=== PATIENT | female | born 1970 | race Caucasian/White ===

== ENCOUNTER 2017-01-04 20:34 | Emergency (ER) | payer OTHER ==
[2017-01-04] MEDS ORDERED: SODIUM CHLORIDE 0.9% 1,000 ML IV STA (21:53)
[2017-01-04 22:31] LABS: Basophils # (A) 0.1 k/uL (0-0.2); Basophils % (A) 1 %; CHCM 36.9; Eosinophils # (A) 0.3 k/uL (0-0.7); Eosinophils % (A) 3 %; HDW 3.25; HGB 14.7 gm/dL (11.4-16.0); Hyperchromasia Slight; Luc # (Auto) 0.29; Luc % (Auto) 3; Lymphocytes # (A) 2.8 k/uL (1.0-4.8); Lymphocytes % (A) 30 %; MCH 31.2 pg (25.0-35.0); MCHC 35.8 g/dL (31.0-37.0); MCV 87.3 fL (80.0-100.0); Mean Platelet Volume 7.5; Monocytes # (A) 0.5 k/uL (0-1.0); Monocytes % (A) 6 %; Neutrophils # (A) 5.4 k/uL (1.3-7.7); Neutrophils % (A) 58 %; RBC 4.69 m/uL (3.80-5.40); RDW 13.1 % (11.5-15.5); WBC 9.3 k/uL (3.8-10.6)
[2017-01-04 22:41] LABS: ALT 50 U/L (9-52); AST 31 U/L (14-36); Alkaline Phosphatase 72 U/L (38-126); Amylase 47 U/L (30-110); Anion Gap 13 mmol/L; Blood Urea Nitrogen 14 mg/dL (7-17); Calcium 9.6 mg/dL (8.4-10.2); Carbon Dioxide 25 mmol/L (22-30); Chloride 102 mmol/L (98-107); Glucose 182 mg/dL (74-99); Non-African American GFR(MDRD) >60 (>60 ml/min/1.73 sqM); Potassium 4.4 mmol/L (3.5-5.1); Sodium 140 mmol/L (137-145); Total Bilirubin 0.6 mg/dL (0.2-1.3); Total Protein 7.3 g/dL (6.3-8.2)
[2017-01-04 22:45] LABS: Appearance,Urine Clear (Clear); Bacteria,Urine Rare /hpf; Bilirubin,Urine Negative (Negative); Glucose,Urine (UA) Negative (Negative); Ketones,Urine Trace (Negative); Leukocyte Esterase,Urine Trace (Negative); Mucus,Urine Rare /hpf; Nitrite,Urine Negative (Negative); PH, Urine 5.5 (5.0-8.0); Particle Count 1643; Protein,Urine Negative (Negative); RBC,Urine <1 /hpf (0-5); Specific Gravity,Urine 1.018 (1.001-1.035); Squamous Epithelial Cell,Urine <1 /hpf (0-4); UA Billing (MACRO vs. MICRO) MICRO; Urobilinogen,Urine <2.0 mg/dL (<2.0); WBC,Urine 2 /hpf (0-5)
--- NOTE | 2017-01-04 22:53 | ED ---
Abdominal Pain HPI - General Chief Complaint: Abdominal Pain Stated Complaint: Back Pain Time Seen by Provider: 01/04/17 21:52 Source: patient, RN notes reviewed Mode of arrival: ambulatory Limitations: no limitations - History of Present Illness Initial Comments: Patient is a 46-year-old female with chief complaint of a lower deep back pain for the past few days. She also reports that she has had a history of dysuria for the past 3 days as well. She did call her primary care provider and was started on Bactrim. She states that she's at the antibiotic for 4 days and senna relief of her symptoms. She states that a few weeks ago she did have unprotected sex with a new partner. Patient states that she may have a sexual transmitted infection. She denies any vaginal discharge. She states that she feels a deep aching pain in her lower back and pelvis. She states that she's had normal bowel movements but feels a fullness that she is constipated. She denies any history of kidney stones. She states the pain is currently 3 out of 10. She states that shows a has a history of borderline diabetes, high blood pressure, neuropathy. She states that she feels very anxious about this. - Related Data Home Medications Medication Instructions Recorded Confirmed ALPRAZolam [Xanax] 0.25 - 0.5 mg PO DAILY PRN 07/09/16 07/09/16 Escitalopram [Lexapro] 10 mg PO DAILY 07/09/16 07/09/16 Metoprolol Tartrate [Lopressor] 50 mg PO BID 07/09/16 07/09/16 Thyroid,Pork [[place] Thyroid] 180 mg PO DAILY 07/09/16 07/09/16 Previous Rx's Medication Instructions Recorded Phenazopyridine [Pyridium] 100 mg PO TID #9 tablet 01/04/17 Allergies Allergy/AdvReac Type Severity Reaction Status Date / Time morphine AdvReac Nausea & Verified 01/04/17 20:47 Vomiting Review of Systems ROS Statement: Those systems with pertinent positive or pertinent negative responses have been documented in the HPI. ROS Other: All systems not noted in ROS Statement are negative. Past Medical History Past Medical History: Hypertension, Thyroid Disorder Additional Past Medical History / Comment(s): High liver enzymes; Ruptured achilles tendon right. has not been dx with DM although pt is concerned she may have this History of Any Multi-Drug Resistant Organisms: MRSA Date of last positivie culture/infection: 1996 MDRO Source:: Right ankle Past Surgical History: Orthopedic Surgery, Tonsillectomy Additional Past Surgical History / Comment(s): Thyroidectomy; right knee surgery Past Psychological History: No Psychological Hx Reported Smoking Status: Never smoker Past Alcohol Use History: Occasional Past Drug Use History: None Reported General Exam - General Exam Comments Initial Comments: Well-appearing 46-year-old female. No acute distress. Limitations: no limitations General appearance: alert, in no apparent distress Head exam: Present: atraumatic, normocephalic, normal inspection Eye exam: Present: normal appearance, PERRL, EOMI. Absent: scleral icterus, conjunctival injection, periorbital swelling ENT exam: Present: normal exam Neck exam: Present: normal inspection. Absent: tenderness, meningismus, lymphadenopathy Respiratory exam: Present: normal lung sounds bilaterally. Absent: respiratory distress, wheezes, rales, rhonchi, stridor Cardiovascular Exam: Present: regular rate, normal rhythm, normal heart sounds. Absent: systolic murmur, diastolic murmur, rubs, gallop, clicks GI/Abdominal exam: Present: soft, normal bowel sounds. Absent: distended, tenderness, guarding, rebound, rigid Extremities exam: Present: normal inspection, full ROM, normal capillary refill. Absent: tenderness, pedal edema, joint swelling, calf tenderness Back exam: Present: normal inspection Neurological exam: Present: alert, oriented X3, CN II-XII intact Psychiatric exam: Present: normal affect, normal mood Skin exam: Present: warm, dry, intact, normal color. Absent: rash Course Vital Signs 01/04/17 01/04/17 01/05/17 20:38 23:08 00:03 Temperature 99.6 F 98.3 F 100.2 F H Pulse Rate 90 87 92 Respiratory 16 20 18 Rate Blood Pressure 161/75 128/61 155/85 O2 Sat by Pulse 99 97 98 Oximetry Medical Decision Making - Medical Decision Making Patient is a 46-year-old female with chief complaint of a lower deep back pain for the past few days. She also reports that she has had a history of dysuria for the past 3 days as well. She did call her primary care provider and was started on Bactrim. She states that she's at the antibiotic for 4 days and senna relief of her symptoms. She states that a few weeks ago she did have unprotected sex with a new partner. Patient states that she may have a sexual transmitted infection. She denies any vaginal discharge. She states that she feels a deep aching pain in her lower back and pelvis. Lab work obtained and is normal. urinalysis is clear of infection, culture will be obtained. Patient states that she has 2 days of antibiotics left. No vaginal discharge or abnormalities on physical exam. Patient will be discharged at this time. Patient understands treatment plan and will comply. Return parameters discussed. Patient will be given Rx of pyridium for dysuria. Patient plans to follow up with PCP on Thursday. - Lab Data Result diagrams: 01/04/17 22:00 01/04/17 22:00 Lab Results 01/04/17 01/04/17 01/04/17 Range/Units 20:44 22:00 22:00 WBC 9.3 (3.8-10.6) k/uL RBC 4.69 (3.80-5.40) m/uL Hgb 14.7 (11.4-16.0) gm/dL Hct 41.0 (34.0-46.0) % MCV 87.3 (80.0-100.0) fL MCH 31.2 (25.0-35.0) pg MCHC 35.8 (31.0-37.0) g/dL RDW 13.1 (11.5-15.5) % Plt Count 254 (150-450) k/uL Neutrophils % 58 % Lymphocytes % 30 % Monocytes % 6 % Eosinophils % 3 % Basophils % 1 % Neutrophils # 5.4 (1.3-7.7) k/uL Lymphocytes # 2.8 (1.0-4.8) k/uL Monocytes # 0.5 (0-1.0) k/uL Eosinophils # 0.3 (0-0.7) k/uL Basophils # 0.1 (0-0.2) k/uL Hyperchromasia Slight Sodium 140 (137-145) mmol/L Potassium 4.4 (3.5-5.1) mmol/L Chloride 102 (98-107) mmol/L Carbon Dioxide 25 (22-30) mmol/L Anion Gap 13 mmol/L BUN 14 (7-17) mg/dL Creatinine 0.70 (0.52-1.04) mg/dL Est GFR (MDRD) Af Amer >60 (>60 ml/min/1.73 sqM) Est GFR (MDRD) Non-Af >60 (>60 ml/min/1.73 sqM) Glucose 182 H (74-99) mg/dL POC Glucose (mg/dL) 241 H (75-99) mg/dL POC Glu Plumber Apprentice ID Oziel Spencer Calcium 9.6 (8.4-10.2) mg/dL Total Bilirubin 0.6 (0.2-1.3) mg/dL AST 31 (14-36) U/L ALT 50 (9-52) U/L Alkaline Phosphatase 72 (38-126) U/L Total Protein 7.3 (6.3-8.2) g/dL Albumin 4.5 (3.5-5.0) g/dL Amylase 47 (30-110) U/L Lipase 98 (23-300) U/L Urine Color Urine Appearance (Clear) Urine pH (5.0-8.0) Ur Specific [place] (1.001-1.035) Urine Protein (Negative) Urine Glucose (UA) (Negative) Urine Ketones (Negative) Urine Blood (Negative) Urine Nitrite (Negative) Urine Bilirubin (Negative) Urine Urobilinogen (<2.0) mg/dL Ur Leukocyte Esterase (Negative) Urine RBC (0-5) /hpf Urine WBC (0-5) /hpf Ur Squamous Epith Cells (0-4) /hpf Urine Bacteria (None) /hpf Urine Mucus (None) /hpf Urine HCG, Qual (Not Detectd) Trichomonas Ag (Rapid) (Negative) 01/04/17 01/04/17 01/04/17 Range/Units 22:00 22:00 23:42 WBC (3.8-10.6) k/uL RBC (3.80-5.40) m/uL Hgb (11.4-16.0) gm/dL Hct (34.0-46.0) % MCV (80.0-100.0) fL MCH (25.0-35.0) pg MCHC (31.0-37.0) g/dL RDW (11.5-15.5) % Plt Count (150-450) k/uL Neutrophils % % Lymphocytes % % Monocytes % % Eosinophils % % Basophils % % Neutrophils # (1.3-7.7) k/uL Lymphocytes # (1.0-4.8) k/uL Monocytes # (0-1.0) k/uL Eosinophils # (0-0.7) k/uL Basophils # (0-0.2) k/uL Hyperchromasia Sodium (137-145) mmol/L Potassium (3.5-5.1) mmol/L Chloride (98-107) mmol/L Carbon Dioxide (22-30) mmol/L Anion Gap mmol/L BUN (7-17) mg/dL Creatinine (0.52-1.04) mg/dL Est GFR (MDRD) Af Amer (>60 ml/min/1.73 sqM) Est GFR (MDRD) Non-Af (>60 ml/min/1.73 sqM) Glucose (74-99) mg/dL POC Glucose (mg/dL) (75-99) mg/dL POC Glu Plumber Apprentice ID Calcium (8.4-10.2) mg/dL Total Bilirubin (0.2-1.3) mg/dL AST (14-36) U/L ALT (9-52) U/L Alkaline Phosphatase (38-126) U/L Total Protein (6.3-8.2) g/dL Albumin (3.5-5.0) g/dL Amylase (30-110) U/L Lipase (23-300) U/L Urine Color Yellow Urine Appearance Clear (Clear) Urine pH 5.5 (5.0-8.0) Ur Specific [place] 1.018 (1.001-1.035) Urine Protein Negative (Negative) Urine Glucose (UA) Negative (Negative) Urine Ketones Trace H (Negative) Urine Blood Negative (Negative) Urine Nitrite Negative (Negative) Urine Bilirubin Negative (Negative) Urine Urobilinogen <2.0 (<2.0) mg/dL Ur Leukocyte Esterase Trace H (Negative) Urine RBC <1 (0-5) /hpf Urine WBC 2 (0-5) /hpf Ur Squamous Epith Cells <1 (0-4) /hpf Urine Bacteria Rare H (None) /hpf Urine Mucus Rare H (None) /hpf Urine HCG, Qual Not Detected (Not Detectd) Trichomonas Ag (Rapid) Negative (Negative) Disposition Clinical Impression: History of urinary tract infection, Dysuria Disposition: HOME SELF-CARE Condition: Good Instructions: Dysuria (ED) Additional Instructions: Patient resting Motrin Tylenol for pain. Follow-up with primary care provider if symptoms persist. Take previous a prescribed antibiotic and fluconazole. Prescriptions: Phenazopyridine [Pyridium] 100 mg PO TID #9 tablet Referrals: Willi Cruz DO [Primary Care Provider] - 1-2 days Time of Disposition: 23:53
--- NOTE | 2017-01-04 23:37 | XR ---
EXAM: XR Abdomen, 1 View. CLINICAL HISTORY: Reason: abdominal pain TECHNIQUE: Frontal view of the abdomen. COMPARISON: No relevant prior studies available. FINDINGS: Limitations: Limited study, with a single image centered on the abdomen and excluding the mid to lower pelvis as well as right and left lateral aspects of the abdomen, was provided. It is not certain whether the image was obtained upright or supine. Gastrointestinal tract: There is a mild to moderate amount of colonic stool, where visualized within the colon. Small amount of air is seen within the gastric fundus. No markedly dilated loops are seen on this very limited exam. Bones/joints: Multilevel degenerative changes. IMPRESSION: Limited exam with single image provided, showing mild to moderate amount of colonic stool, as above. The findings could be correlated and followed clinically to guide further follow-up as clinically indicated.
[2017-01-04] MEDS ORDERED: PHENAZOPYRIDINE 100 MG TAB PO STA (23:50)
[2017-01-05 00:06] VITALS: BP 155/85; PULSE 92; RESP 18; TEMP 100.2
[2017-01-05 07:11] LABS: Glucose,Whole Blood 241 mg/dL (75-99)
[2017-01-06 12:33] LABS: Chlamydia/GC Source Vaginal
== END 2017-01-05 00:12 | disposition home or self-care (01) ==
LOC: EC 20:34
DX: R30.0 Dysuria (principal); M54.5 Low back pain; R10.9 Unspecified abdominal pain; K59.00 Constipation, unspecified; I10 Essential (primary) hypertension; E07.9 Disorder of thyroid, unspecified; Z79.899 Other long term (current) drug therapy; Z88.5 Allergy status to narcotic agent; Z87.440 Personal history of urinary (tract) infections
CPT/HCPCS: 36415; 74000; 80053; 81001; 81025; 82150; 83690; 85025; 87070; 87086; 87205; 87491; 87591; 87808; 99284

== ENCOUNTER → 2019-09-14 | Outpatient (CLI) | payer OTHER ==
[2019-09-14 15:35] LABS: Basophils % (A) 0 %; Eosinophils # (A) 0.2 k/uL (0-0.7); Eosinophils % (A) 2 %; HCT 40.4 % (34.0-46.0); Lymphocytes % (A) 24 %; MCH 31.3 pg (25.0-35.0); MCHC 34.8 g/dL (31.0-37.0); Mean Platelet Volume 5.8; Monocytes # (A) 0.4 k/uL (0-1.0); Monocytes % (A) 5 %; Neutrophils # (A) 5.6 k/uL (1.3-7.7); Neutrophils % (A) 67 %; Platelet Count 312 k/uL (150-450); RBC 4.49 m/uL (3.80-5.40); WBC 8.3 k/uL (3.8-10.6)
[2019-09-14 23:42] LABS: Hemoglobin A1C 5.8 % (4.0-6.0)
[2019-09-15 01:09] LABS: African American GFR (CKD) 99.6 (60.0-200.0); Albumin 4.4 g/dL (3.80-4.90); Albumin/Globulin Ratio 2.59 (1.60-3.17); Anion Gap 9.8 mmol/L (4.00-12.00); BUN/Creat Ratio 16.25 Ratio (12.00-20.00); Calcium 9.1 mg/dL (8.7-10.3); Carbon Dioxide 23.2 mmol/L (21.6-31.8); Chol/HDL Ratio 4.55; Globulin 1.7 g/dL (1.6-3.3); LDL Cholesterol,Calculated 103.2 mg/dL (0.0-131.0); Total Bilirubin 0.7 mg/dL (0.3-1.2); Total Protein 6.1 g/dL (6.2-8.2); VLDL Calculation 31.8 mg/dL (5.00-40.00)
== END | disposition home or self-care (01) ==
LOC: LABWHC1 14:30
PROVIDERS: ATTEND Family Medicine
DX: E11.37X1 Type 2 diabetes mellitus with diabetic macular edema, resolved following treatment, right eye (principal); Z85.850 Personal history of malignant neoplasm of thyroid
CPT/HCPCS: 36415; 80053; 80061; 82043; 82570; 83036; 84439; 84443; 85025; 86800

== ENCOUNTER → 2019-09-20 | Outpatient (CLI) | payer OTHER ==
--- NOTE | 2019-09-20 08:45 | US ---
EXAMINATION TYPE: US thyroid st tissue head/neck DATE OF EXAM: 09/20/2019 COMPARISON: NONE CLINICAL HISTORY: C73 MAL.NEOPLASM OF THYROID. Thyroidectomy 2004, history of papillary thyroid carci noma GLAND SIZE: Right Lobe: Surgically absent Left Lobe: Surgically absent NODULES RIGHT: # of nodules measured on right: 0 LEFT: # of nodules measured on left: 0 ISTHMUS: # of nodules measured in the isthmus: 0 Bilateral neck scanned, no evidence of lymphadenopathy. IMPRESSION: Post thyroidectomy with no sizable mass or evidence of lymphadenopathy.
--- NOTE | 2019-09-20 08:47 | US ---
EXAMINATION TYPE: US abdomen complete DATE OF EXAM: 09/20/2019 COMPARISON: NONE CLINICAL HISTORY: R10.9 Abd pain. abdominal pain EXAM MEASUREMENTS: Liver Length: 20.6 cm Gallbladder Wall: 0.3 cm CBD: 0.2 cm Spleen: 11.7 cm Right Kidney: 12.4 x 4.3 x 4.1 cm Left Kidney: 11.1 x 4.9 x 5.3 cm Pancreas: slightly heterogeneous Limited by bowel gas. Liver: enlarged, attenuating Gallbladder: multiple stones Evidence for sonographic Pete's sign: yes CBD: appears wnl Spleen: wnl Right Kidney: no evidence of hydronephrosis or mass Left Kidney: no evidence of hydronephrosis or mass Upper IVC: wnl Abd Aorta: distal and bifurcation obscured, visualized portions appear wnl IMPRESSION: 1. Hepatomegaly correlate for hepatic steatosis, hepatitis or diffuse hepatocellular disease. 2. Cholelithiasis with borderline wall thickening correlate clinically. 3. Liver slightly heterogeneous but Limited by bowel gas. Correlate with pancreatic enzymes. If warra nted correlation CT scan performed.
== END | disposition home or self-care (01) ==
LOC: RADUSWWP 07:33
PROVIDERS: ATTEND Family Medicine
DX: K80.20 Calculus of gallbladder without cholecystitis without obstruction (principal); R16.0 Hepatomegaly, not elsewhere classified; Z85.850 Personal history of malignant neoplasm of thyroid; E89.0 Postprocedural hypothyroidism
CPT/HCPCS: 76536; 76700

== ENCOUNTER → 2020-08-24 | Outpatient (CLI) | payer OTHER ==
[2020-08-24 11:27] LABS: Basophils % (A) 0 %; Eosinophils # (A) 0.2 k/uL (0-0.7); Eosinophils % (A) 2 %; HCT 41.1 % (34.0-46.0); Lymphocytes # (A) 1.6 k/uL (1.0-4.8); Lymphocytes % (A) 14 %; MCH 30.8 pg (25.0-35.0); MCHC 34.1 g/dL (31.0-37.0); MCV 90.3 fL (80.0-100.0); Mean Platelet Volume 7.1; Monocytes # (A) 0.5 k/uL (0-1.0); Monocytes % (A) 5 %; Neutrophils # (A) 9.2 k/uL (1.3-7.7); Neutrophils % (A) 79 %; Platelet Count 248 k/uL (150-450); RBC 4.55 m/uL (3.80-5.40); RDW 13.5 % (11.5-15.5); WBC 11.7 k/uL (3.8-10.6)
== END | disposition home or self-care (01) ==
LOC: LABWHC1 10:55
PROVIDERS: ATTEND Orthopaedic Surgery
DX: M23.91 Unspecified internal derangement of right knee (principal)
CPT/HCPCS: 85025

== ENCOUNTER → 2020-08-24 | Outpatient (CLI) | payer OTHER ==
[2020-08-24 20:14] LABS: Hemoglobin A1C 6.3 % (4.0-6.0)
[2020-08-24 21:00] LABS: African American GFR (CKD) 98.9 (60.0-200.0); Albumin 4.3 g/dL (3.80-4.90); Albumin/Globulin Ratio 2.05 (1.60-3.17); Anion Gap 8.3 mmol/L (4.00-12.00); BUN/Creat Ratio 17.5 Ratio (12.00-20.00); Calcium 9.2 mg/dL (8.7-10.3); Carbon Dioxide 26.7 mmol/L (21.6-31.8); Chol/HDL Ratio 4.97; Globulin 2.1 g/dL (1.6-3.3); LDL Cholesterol,Calculated 108.6 mg/dL (0.0-131.0); Non-African American GFR(CKD) 85.4 (60.0-200.0); Potassium 4.5 mmol/L (3.5-5.5); Total Bilirubin 0.8 mg/dL (0.2-1.2); Total Protein 6.4 g/dL (6.2-8.2); VLDL Calculation 42.4 mg/dL (5.00-40.00)
[2020-08-24 21:31] LABS: T4, Free (Free Thyroxine) 0.7 ng/dL (0.80-1.80)
== END | disposition home or self-care (01) ==
LOC: LABWHC1 10:48
PROVIDERS: ATTEND Orthopaedic Surgery
DX: E11.9 Type 2 diabetes mellitus without complications (principal); E03.9 Hypothyroidism, unspecified
CPT/HCPCS: 36415; 80053; 80061; 83036; 84439; 84443

== ENCOUNTER → 2020-08-29 | Day surgery (SDC) | payer OTHER ==
[2020-08-27 10:27] VITALS: BMI 38.2
--- NOTE | 2020-08-28 14:22 | HP ---
HISTORY AND PHYSICAL DATE OF SURGERY: 08/29/2020 Kimmy Augustine is a 49-year-old patient seen with progressive right knee pain. We discussed options for treatment. She elected to proceed with right knee arthroscopy. Consent was obtained. PAST MEDICAL HISTORY: Hypothyroidism, hypertension, anxiety. PAST SURGICAL HISTORY: Right foot surgery, right knee surgery. DAILY MEDICATIONS: Thyroid, meloxicam, metoprolol. ALLERGIES: DEMEROL, MORPHINE. SOCIAL HISTORY: She denies current tobacco use. PHYSICAL EVALUATION RIGHT KNEE: Range of motion is -3 to 115, mild to moderate effusion. Tenderness along the medial and lateral joint lines. Positive medial Luis's. Positive lateral Luis's. Ligaments stable. Hip rotation without pain. Distal neurovascular exam intact. Right knee radiographs revealed old lateral tibial plateau fracture. There is a metallic screw in the proximal tibia. There are moderate osteoarthritic changes. IMPRESSION: 1. Internal derangement with medial meniscal tear. 2. Right knee osteoarthritis. 3. Hypothyroidism. 4. Hypertension. PLAN: Right knee arthroscopy with partial meniscectomy, partial synovectomy and debridement. MMODL / IJN: [id number] /
[~2020-08-29] MED LIST: ACETAMINOPHEN IV (For NPO) 1,000 MG/100 ML VIAL ONE; BUPIVACAINE (PF) 0.25% 30 ML VIAL SQ ONE; DEXAMETHASONE SOD PHOSPHATE 4 MG/ML 1 ML VIAL IV ONE; HYDROcodone/APAP 5-325MG 1 EACH TAB ONE; HYDROcodone/APAP 5-325MG 1 EACH TAB PO ONE; HYDROmorphone 0.5 MG/0.5 ML SYRINGE IVP PRN; KETOROLAC 15 MG/ML 1 ML VIAL ONE; LACTATED RINGERS 1,000 ML IV SCH; LIDOCAINE 1% INJ 10MG/ML (20 ML MDV) ONE; MIDAZOLAM 2 MG/2 ML VIAL ONE; ONDANSETRON 4 MG/2 ML VIAL IVP ONE; PROPOFOL 10 MG/ML 20 ML VIAL IV ONE
[2020-08-29 09:57] LABS: Glucose,Whole Blood 227 mg/dL (75-99)
--- NOTE | 2020-08-29 11:25 | P.OP ---
Date of Procedure: 08/29/20 Preoperative Diagnosis: Internal derangement right knee Postoperative Diagnosis: 1. Tear medial meniscus right knee 2. Grade 2 chondromalacia medial femoral condyle right knee 3. Reactive synovitis medial, lateral and suprapatellar compartments right knee Procedure(s) Performed: 1. Arthroscopic partial medial meniscectomy right knee 2. Arthroscopic chondroplasty medial femoral condyle right knee 3. Arthroscopic partial synovectomy medial, lateral and suprapatellar compartments right knee Anesthesia: YOHANNESA, local Surgeon: Juan Sanabria Estimated Blood Loss (ml): 7 Pathology: none sent Condition: stable Disposition: PACU Indications for Procedure: 49-year-old patient seen with progressive right knee pain. After having treatment options discussed, she elected to proceed with arthroscopy. Operative Findings: See description of procedure Description of Procedure: Patient was taken to the operative suite. Patient underwent a general anesthetic by the department of anesthesia. Patient was given preoperative antibiotics. The right lower extremity was placed in a well-padded arthroscopic leg ying. The right leg was prepped and draped in the normal sterile orthopedic fashion. A lateral parapatellar and suprapatellar incision was made. Trochars were inserted. Arthroscopy was initiated. Suprapatellar pouch revealed diffuse thick reactive synovitis. The patellofemoral joint appeared articulate congruently. There was grade 1 chondromalacia of the patella. The scope was guided into the medial gutter. No loose bodies or plica were identified. The scope was then guided into the medial compartment. A medial parapatellar incision was made. Trocar inserted followed by probe. There was a complex tear involving the posterior horn medial meniscus. There were grade 2 chondromalacia changes of the medial femoral condyle. There was thick reactive synovitis anteriorly. I performed a partial medial meniscectomy getting down to stable meniscal tissue. I performed a chondroplasty of the medial femoral condyle getting down to stable osteochondral tissue. I performed a partial synovectomy decompressing the reactive synovitis. The residual meniscus was probed and found to be stable. The residual osteochondral surface of the medial femoral condyle was stable. There was good decompression reactive synovitis. Scope and probe were then guided into the intercondylar notch. Cruciates were identified, probed and found to be stable. The scope and probe were then guided into lateral compartment. Superficial fraying midbody lateral meniscus. There was thick reactive some-itis anteriorly. There was no significant chondromalacia involving lateral compartment. I performed a partial synovectomy decompressing reactive synovitis and debrided the superficial fraying lateral meniscus. There was good decompression reactive synovitis. The scope was in guided back into the suprapatellar compartment. I introduced a motorized shaver into the super patellar compartment. I debrided some piecemeal fragments of meniscus I encountered. I performed a partial synovectomy. Shaver was removed. There was good decompression of the synovitis. Instruments were now removed from the joint. The joint was infiltrated with .25% Marcaine. Steri-Strips were applied to the portal sites. Sterile dressings were applied. The patient was placed into a SAY hose. No tourniquet was utilized. The patient was awakened, transferred to a bed and taken to recovery stable satisfactory condition.
[2020-08-29 11:34] VITALS: TEMP 97.4
[2020-08-29 11:45] LABS: Glucose,Whole Blood 196 mg/dL (75-99)
[2020-08-29 11:50] VITALS: RESP 16
[2020-08-29 12:49] VITALS: PULSE 80
[2020-08-29 13:32] VITALS: BP 166/73
== END | disposition home or self-care (01) ==
LOC: OR 09:06
PROVIDERS: ATTEND Orthopaedic Surgery
DX: M23.203 Derangement of unspecified medial meniscus due to old tear or injury, right knee (principal); M94.261 Chondromalacia, right knee; M65.861 Other synovitis and tenosynovitis, right lower leg; M17.11 Unilateral primary osteoarthritis, right knee; I10 Essential (primary) hypertension; E03.9 Hypothyroidism, unspecified; F41.9 Anxiety disorder, unspecified; Z79.1 Long term (current) use of non-steroidal anti-inflammatories (NSAID); Z79.899 Other long term (current) drug therapy; Z88.5 Allergy status to narcotic agent; E11.9 Type 2 diabetes mellitus without complications; K21.9 Gastro-esophageal reflux disease without esophagitis; Z79.891 Long term (current) use of opiate analgesic
CPT/HCPCS: 81025; 29881; 29876; 29879; J2250; J1100; J0690; J2405; J2001; J0131; J1885; J2704

== ENCOUNTER → 2020-10-03 | Outpatient (CLI) | payer OTHER ==
--- NOTE | 2020-10-07 12:59 | MR ---
EXAMINATION TYPE: MR shoulder RT wo con DATE OF EXAM: 10/03/2020 COMPARISON: Plain film 09/04/2020 HISTORY: Right shoulder pain x 6 mos TECHNIQUE: Multiplanar, multisequence imaging of the right shoulder is performed without contrast. FINDINGS: Rotator Cuff: There is abnormal thickening, abnormal increased intrinsic signal within the rotator cu ff, partial thickness tear is present at the undersurface at the level of the attachment on the humer al head, sagittal image #8, coronal image images #15 through 18 Acromioclavicular Joint: Acromioclavicular joint arthropathy change causes some mass effect on the mu sculotendinous junction of supraspinatus Glenohumeral Joint: Intact Labrum: Some increased intrinsic signal present within the superior labrum, coronal image 14 Biceps Tendon: The long head of biceps is in normal location within bicipital groove. Bone marrow signal: Pseudocysts present within the humeral head. Other: There is fluid signal in the subacromial subdeltoid bursa. Small distal acromial spur. IMPRESSION: Partial thickness undersurface tear, tendinosis of the rotator cuff. Correlate for impingement. Suspe ct some intrinsic degenerative signal within the superior labrum
== END | disposition home or self-care (01) ==
LOC: RADMRIMAIN 17:53
PROVIDERS: ATTEND Orthopaedic Surgery
DX: M75.111 Incomplete rotator cuff tear or rupture of right shoulder, not specified as traumatic (principal); M67.813 Other specified disorders of tendon, right shoulder

== ENCOUNTER → 2020-11-20 | Outpatient (CLI) | payer OTHER ==
[2020-11-20 15:47] LABS: African American GFR (CKD) 115.5 (60.0-200.0); Albumin 4.7 g/dL (3.80-4.90); Albumin/Globulin Ratio 2.76 (1.60-3.17); Anion Gap 5.3 mmol/L (4.00-12.00); BUN/Creat Ratio 24.29 Ratio (12.00-20.00); Carbon Dioxide 26.7 mmol/L (21.6-31.8); Chol/HDL Ratio 4.28; Globulin 1.7 g/dL (1.6-3.3); LDL Cholesterol,Calculated 76.8 mg/dL (0.0-131.0); Non-African American GFR(CKD) 99.6 (60.0-200.0); Potassium 4.7 mmol/L (3.5-5.5); Total Bilirubin 0.4 mg/dL (0.3-1.2); Total Protein 6.4 g/dL (6.2-8.2); VLDL Calculation 28.2 mg/dL (5.00-40.00)
[2020-11-20 15:54] LABS: T4, Free (Free Thyroxine) 1.2 ng/dL (0.80-1.80)
[2020-11-20 17:11] LABS: Hemoglobin A1C 7.2 % (4.0-6.0)
== END | disposition home or self-care (01) ==
LOC: LABWHC1 09:19
PROVIDERS: ATTEND Nurse Practitioner Family
DX: Z00.00 Encounter for general adult medical examination without abnormal findings (principal); E03.9 Hypothyroidism, unspecified; E11.9 Type 2 diabetes mellitus without complications
CPT/HCPCS: 36415; 80053; 80061; 83036; 84439; 84443; 84481

== ENCOUNTER → 2020-11-20 | Outpatient (CLI) | payer OTHER ==
[2020-11-20 11:25] LABS: Basophils % (A) 1 %; Eosinophils # (A) 0.3 k/uL (0-0.7); Eosinophils % (A) 3 %; HCT 38.9 % (34.0-46.0); HGB 13.6 gm/dL (11.4-16.0); Lymphocytes # (A) 1.9 k/uL (1.0-4.8); Lymphocytes % (A) 24 %; MCH 31.2 pg (25.0-35.0); MCHC 34.8 g/dL (31.0-37.0); MCV 89.7 fL (80.0-100.0); Mean Platelet Volume 8.1; Monocytes # (A) 0.5 k/uL (0-1.0); Monocytes % (A) 6 %; Neutrophils % (A) 64 %; Platelet Count 252 k/uL (150-450); RBC 4.34 m/uL (3.80-5.40); RDW 12.9 % (11.5-15.5); WBC 7.8 k/uL (3.8-10.6)
== END | disposition home or self-care (01) ==
LOC: LABPAT 09:08
PROVIDERS: ATTEND Orthopaedic Surgery
DX: Z01.818 Encounter for other preprocedural examination (principal); M75.41 Impingement syndrome of right shoulder
CPT/HCPCS: 85025; 93005

== ENCOUNTER 2020-11-21 06:02 | Day surgery (SDC) | payer OTHER ==
[2020-11-20 09:03] VITALS: BMI 38.9
--- NOTE | 2020-11-20 16:15 | HP ---
HISTORY AND PHYSICAL Surgery is 11/21/2020. Kimmy Augustine is a 50-year-old patient seen with progressive right shoulder pain. Options for treatment were discussed with her. She elected to proceed with arthroscopy. Consent obtained. PAST MEDICAL HISTORY: Hypertension, hypothyroidism. PAST SURGICAL HISTORY: Foot surgery, knee arthroscopy. MEDICATIONS: 1. [place] Thyroid. 2. Gabapentin. 3. Meloxicam. 4. Metoprolol. ALLERGIES: DEMEROL, MORPHINE. SOCIAL HISTORY: She denies current tobacco use. PHYSICAL EVALUATION OF THE RIGHT SHOULDER: Flexion 150, abduction 140, external rotation is 50 with pain and weakness. Tenderness along the anterolateral acromion and rotator cuff insertion site. Impingement positive 85. Drop-arm sign is positive. Distal neurovascular exam is intact. Right shoulder type 2 acromion cystic changes of the tuberosity. MRI right shoulder rotator cuff tear, impingement and acromioclavicular joint osteoarthritis. IMPRESSION: 1. Right shoulder impingement with rotator cuff tear. 2. Right shoulder acromioclavicular joint osteoarthritis. 3. Hypertension. 4. Hypothyroidism. PLAN: Right shoulder arthroscopy with subacromial decompression, arthroscopic rotator cuff repair, Lorenzo procedure and debridement. MMODL / IJN: [id number] /
[~2020-11-21 06:02] MED LIST changes: -ACETAMINOPHEN IV (For NPO) 1,000 MG/100 ML VIAL ONE; -BUPIVACAINE (PF) 0.25% 30 ML VIAL SQ ONE; -HYDROcodone/APAP 5-325MG 1 EACH TAB ONE; -HYDROcodone/APAP 5-325MG 1 EACH TAB PO ONE; -HYDROmorphone 0.5 MG/0.5 ML SYRINGE IVP PRN; -KETOROLAC 15 MG/ML 1 ML VIAL ONE; +LIDOCAINE 1% (10MG/ML) FOR IV START INTRADERMA PRN; -LIDOCAINE 1% INJ 10MG/ML (20 ML MDV) ONE; -MIDAZOLAM 2 MG/2 ML VIAL ONE; -ONDANSETRON 4 MG/2 ML VIAL IVP ONE; -PROPOFOL 10 MG/ML 20 ML VIAL IV ONE
[2020-11-21 06:38] LABS: Glucose,Whole Blood 205 mg/dL (75-99)
[2020-11-21] MEDS ORDERED: ONDANSETRON 4 MG/2 ML VIAL ONE (06:38)
[2020-11-21] MEDS ORDERED: LACTATED RINGERS 1,000 ML IV ONE ×2 (06:40→08:10)
[2020-11-21] MEDS: MIDAZOLAM 2 MG/2 ML VIAL IV PRN ×2 (06:50→06:51)
[2020-11-21] MEDS ORDERED: HYDROmorphone 0.5 MG/0.5 ML SYRINGE IVP PRN (07:00)
[2020-11-21] MEDS ORDERED: ROCURONIUM 10 MG/ML (10 ML VIAL) IV ONE (07:30)
[2020-11-21] MEDS ORDERED: SUCCINYLCHOLINE CHLORIDE 100 MG/5 ML SYR IV ONE (07:30)
[2020-11-21] MEDS ORDERED: fentaNYL (PF) 50 MCG/ML 2 ML AMP ONE (07:30)
[2020-11-21] MEDS ORDERED: MIDAZOLAM 2 MG/2 ML VIAL ONE (07:30)
[2020-11-21] MEDS ORDERED: LIDOCAINE 1% INJ 10MG/ML (20 ML MDV) ONE (07:30)
[2020-11-21] MEDS ORDERED: ROPIVACAINE 5 MG/ML 30 ML VIAL ONE (07:30)
[2020-11-21 09:02] VITALS: TEMP 98
--- NOTE | 2020-11-21 09:04 | P.ANPRN ---
Procedure Note - Anesthesia - Nerve Block Performed Right Interscalene Time Out Performed: Yes (06:50) Date of Procedure: 11/21/20 Procedure Start Time: :50 Procedure Stop Time: 07:05 Location of Patient: PreOp Indication: Acute Post-Operative Pain, Requested by Surgeon (Dr martins) Sedation Type: Sedate with meaningful contact maintained Preparation: Sterile Prep Position: Supine Catheter: None Needle Types: Pajunk (22g) Ultrasound used to visualize needle placement: Yes Ultrasound used to observe medication spread: Yes Injectate: 0.5% Ropivacaine (see comment for volume) (20cc) Blood Aspirated: No Pain Paresthesia on Injection Noted: No Resistance on Injection: Normal Image Stored and Saved: Yes Events: Uneventful and Well Tolerated
--- NOTE | 2020-11-21 09:06 | P.OP ---
Date of Procedure: 11/21/20 Preoperative Diagnosis: Right shoulder impingement Postoperative Diagnosis: 1. Right shoulder rotator cuff tear 2. Right shoulder impingement 3. Right shoulder partial long head biceps tendon tear 4. Right shoulder superficial labral tear Procedure(s) Performed: 1. Right shoulder arthroscopic rotator cuff repair 2. Right shoulder arthroscopic subacromial decompression 3. Right shoulder arthroscopic biceps tenotomy 4. Right shoulder arthroscopic debridement labral tear Implants: 14.75 Arthrex swivel lock anchor Anesthesia: GETA, regional (Interscalene block) Surgeon: Juan Sanabria Scaffold Setter #1: Bairon Taylor Estimated Blood Loss (ml): 8 Pathology: none sent Condition: stable Disposition: PACU Indications for Procedure: 50-year-old patient seen with progressive right shoulder pain. After having treatment options discussed, she elected to proceed with arthroscopy. Operative Findings: see description of procedure Description of Procedure: Patient underwent an interscalene block by department of anesthesia. The patient was then taken to the operative suite. The patient underwent a general anesthetic by the department of anesthesia. The patient was placed into a lateral position and secured. There was appropriate padding of the bony prominence. Right shoulder was then prepped and draped in normal sterile orthopedic fashion. We placed the extremity in 10 pounds of longitudinal traction. A posterior incision was now made for a posterior working portal site. The trocar and cannula were inserted into the glenohumeral joint. Arthroscopy was initiated. Spinal needle was now inserted anteriorly, to ascertain the anterior working portal site. An incision was now made in that area, a trocar was inserted followed by a probe. There was grade 1 chondral malacia of the humeral head. There was superficial tearing of the superior labrum. There was some hyperemia partial tearing long head biceps tendon. I performed arthroscopic biceps tenotomy. I debrided the superficial labral tear. The residual labrum was probed and found to be stable. Instruments were now removed from glenohumeral joint. Utilizing the posterior working portal site, the trocar and cannula were inserted into the subacromial space. Arthroscopy initiated. I made an incision 2 fingerbreadths lateral to the acromion. I introduced my trocar followed by my ArthroCare ablator. I now began ablating thick subacromial bursal tissue, which exposed the undersurface of the anterior acromion. There was diminished subacromial space. There was a very prominent anterior acromion. A motorized bur was introduced and a subacromial decompression was performed. I also excised some osteophytes off the inferior aspect of the distal clavicle. The AC joint was visualized and noted to be moderately arthritic. Did not think enough to warrant a Lorenzo procedure. I turned my attention to the rotator cuff. There was superficial tearing along the distal supraspinatus tendon area. Upon probing the area there was a full-thickness perforation present. I debrided the margins gained down to stable tendon tissue. I abraded the footprint with a motorized bur. I passed 2 everted mattress sutures through good bites of rotator cuff tendon. I punched hole in the the footprint area for insertion of an anchor. I now shuttled all 4 limbs of suture through the eyelet of a 4.75 Arthrex swivel lock anchor. The eyelet was now placed into the pre-punched hole. Froy STONE tensioned all 4 sutures and deployed the anchor with good fixation noted. All residual suture limbs were now clipped. We had good compression of the tendon along the entire footprint. Instruments now removed from the portal sites. All portal sites were approximated with nylon suture. Sterile dressings were applied followed by a shoulder sling. Bairon STONE assisted in this complex case. The patient was awakened, transferred to a bed, and taken to recovery in stable condition.
[2020-11-21 09:33] LABS: Glucose,Whole Blood 261 mg/dL (75-99)
[2020-11-21] MEDS ORDERED: HYDROcodone/APAP 7.5-325MG 1 EACH TAB ONE (10:07)
[2020-11-21] MEDS ORDERED: HYDROcodone/APAP 7.5-325MG 1 EACH TAB PO ONE (10:10)
[2020-11-21 10:17] VITALS: RESP 16
[2020-11-21 11:30] VITALS: BP 138/74; PULSE 85
== END 2020-11-21 11:46 | disposition home or self-care (01) ==
LOC: OR 06:02
PROVIDERS: ATTEND Orthopaedic Surgery
DX: M75.121 Complete rotator cuff tear or rupture of right shoulder, not specified as traumatic (principal); M94.211 Chondromalacia, right shoulder; S43.431A Superior glenoid labrum lesion of right shoulder, initial encounter; S46.111A Strain of muscle, fascia and tendon of long head of biceps, right arm, initial encounter; M75.41 Impingement syndrome of right shoulder; M19.011 Primary osteoarthritis, right shoulder; I10 Essential (primary) hypertension; C73 Malignant neoplasm of thyroid gland; E03.9 Hypothyroidism, unspecified; E11.9 Type 2 diabetes mellitus without complications; Z79.890 Hormone replacement therapy; Z79.84 Long term (current) use of oral hypoglycemic drugs; Z79.899 Other long term (current) drug therapy; Z88.5 Allergy status to narcotic agent; Z91.018 Allergy to other foods; Z91.011 Allergy to milk products
CPT/HCPCS: 64415; 76942; 29827; 29826; C1713 ×2; Q4212; J2250; J1100; J0690; J2405; J2001; J3010; J2795; J0330

== ENCOUNTER → 2022-01-21 | Outpatient (CLI) | payer OTHER ==
[2022-01-21 18:45] LABS: HCT 40.7 % (37.2-46.3); HGB 13.7 g/dL (12.0-15.0); MCH 29.9 pg (27.0-32.0); MCHC 33.7 g/dL (32.0-37.0); MCV 88.9 fL (80.0-97.0); Mean Platelet Volume 10.7 fL (9.5-12.2); NRBC Per 100 WBC 0 /100 WBCS (0.0-0.0); Platelet Count 279 X 10*3/uL (140-440); RBC 4.58 X 10*6/uL (4.10-5.20); RDW 13.2 % (11.5-14.5); WBC 6.33 X 10*3/uL (4.50-10.00)
[2022-01-21 18:49] LABS: African American GFR (CKD) 110.8 (60.0-200.0); Albumin 4.7 g/dL (3.8-4.9); Albumin/Globulin Ratio 2.06 (1.60-3.17); Anion Gap 10.7 mmol/L (10.00-18.00); BUN/Creat Ratio 15.14 Ratio (12.00-20.00); Blood Urea Nitrogen 10.9 mg/dL (9.0-27.0); Calcium 9.4 mg/dL (8.7-10.3); Carbon Dioxide 24.4 mmol/L (20.0-27.5); Globulin 2.3 g/dL (1.6-3.3); Non-African American GFR(CKD) 95.6 (60.0-200.0); Potassium 4.5 mmol/L (3.5-5.5); Total Bilirubin 0.3 mg/dL (0.30-1.20)
== END | disposition home or self-care (01) ==
LOC: LABWHC1 11:28
PROVIDERS: ATTEND Surgery Plastic and Reconstructive Surgery
DX: I11.9 Hypertensive heart disease without heart failure (principal); K80.10 Calculus of gallbladder with chronic cholecystitis without obstruction; R94.31 Abnormal electrocardiogram [ECG] [EKG]
CPT/HCPCS: 36415; 80053; 85027; 93005

== ENCOUNTER 2022-02-27 06:19 | Day surgery (SDC) | payer OTHER ==
[2022-02-18 13:36] VITALS: BMI 36.6
[~2022-02-27 06:19] MED LIST changes: +HEPARIN SODIUM,PORCINE/PF 5,000 UNIT/0.5 ML SYRINGE SQ PRN; -LACTATED RINGERS 1,000 ML IV SCH; -LIDOCAINE 1% (10MG/ML) FOR IV START INTRADERMA PRN; +ONDANSETRON 4 MG/2 ML VIAL IVP ONE
[2022-02-27] MEDS ORDERED: ACETAMINOPHEN TAB 500 MG TAB PO PRN (06:26)
[2022-02-27] MEDS ORDERED: SCOPOLAMINE 1 MG/72 HR PATCH TRANSDERM PRN (06:26)
[2022-02-27] MEDS ORDERED: GABAPENTIN 300 MG CAP PO PRN (06:26)
[2022-02-27] MEDS ORDERED: MELOXICAM 7.5 MG TAB PO PRN (06:26)
--- NOTE | 2022-02-27 06:30 | P.GSHP ---
History of Present Illness H&P Date: 02/27/22 CHIEF COMPLAINT: Cholecystitis HISTORY OF PRESENT ILLNESS: The patient is a 51-year-old female who presents with history of epigastric including right upper quadrant abdominal pain. She underwent diagnostic studies for her gallbladder. Separately her clinical picture was consistent with cholecystitis. Now she presents for surgical intervention. PAST MEDICAL HISTORY: Please see list PAST SURGICAL HISTORY: Please see list MEDICATIONS: Please see list ALLERGIES: Please see list SOCIAL HISTORY: Please see list FAMILY HISTORY: Please see list REVIEW OF ORGAN SYSTEMS: CONSTITUTIONAL: No reports of fevers or chills. HEENT: Denies any trouble with vision, hearing or nosebleeds. No difficulty swallowing. LYMPHATIC: The patient denies any lumps and bumps around the neck. ENDOCRINE: Denies any thyroid disorders. Denies any blood sugar glucose intolerance. RESPIRATORY: Denies pneumonia. Denies any troubles with breathing or dyspnea on exertion. CARDIOVASCULAR: Has hypertension GASTROINTESTINAL: Has heart burn, GENITOURINARY: Denies any blood in urine or increased urinary frequency. MUSCULOSKELETAL: Has back pain, stiffness, joint arthritis. NEUROLOGIC: Denies any numbness or tingling along the distal extremities. No seizure disorders or headaches. PSYCHIATRIC: Denies suidical ideation. HEMATOLOGIC: Denies any abnormal bleeding or bruising. BREASTS: Denies any breast lumps, pain or nipple discharge. PHYSICAL EXAM: VITAL SIGNS: Afebrile vital signs stable GENERAL: Well-developed pleasant in no acute distress. HEENT: No scleral icterus. Extraocular movements grossly intact. Moist buccal mucosa. NECK: Supple without lymphadenopathy. CHEST: Unlabored respirations. Equal bilateral excursions. CARDIOVASCULAR: Regular rate regular rhythm rhythm. Distal 2+ pulses. ABDOMEN: Soft, nondistended. Tender along the epigastrium and right upper quadrant. MUSCULOSKELETAL: No clubbing, cyanosis, or edema. NEURO: Cranial nerves II to XII within normal limits. No focal or lateralizing signs. PSYCH: Alert and oriented to person, place and time. SKIN: Well-perfused good skin turgor. ASSESSMENT: 1. Epigastric and right upper quadrant abdominal pain 2. Chronic cholecystitis 3. Symptomatic gallstones. PLAN: 1. Will need a robotic cholecystectomy possible open. Benefits and risks were described. 2. Heparin for DVT prophylaxis 5000 units. 3. Antibiotic prophylaxis. 4. She is elevated risk with hypertensive heart disese and abnormal EKG including morbid obesity Past Medical History Past Medical History: Cancer, Diabetes Mellitus, GERD/Reflux, Hypertension, Neurologic Disorder, Thyroid Disorder Additional Past Medical History / Comment(s): Slightly elevated cholesterol. High liver enzymes. Hx thyroid cancer in 2003. Neuropathy bilateral feet with chronic pain. Bilateral carpal tunnel with chronic pain. History of Any Multi-Drug Resistant Organisms: MRSA Date of last positivie culture/infection: 1996 MDRO Source:: Right ankle Past Surgical History: Orthopedic Surgery, Tonsillectomy Additional Past Surgical History / Comment(s): Thyroidectomy, right knee surgery - screw placed, right rotator cuff repair, right achilles tendon repair - infected - Centeno's Catheter placed and later removed. Past Anesthesia/Blood Transfusion Reactions: No Reported Reaction Past Psychological History: Depression Past Alcohol Use History: Occasional Past Drug Use History: None Reported - Past Family History Mother Family Medical History: No Reported History Father Family Medical History: Cancer Medications and Allergies Home Medications Medication Instructions Recorded Confirmed Type Metoprolol Tartrate [Lopressor] 50 mg PO BID 07/09/16 02/18/22 History Thyroid,Pork [[place] Thyroid] 180 mg PO QAM 07/09/16 02/20/22 History Baclofen 10 mg PO HS 08/27/20 02/20/22 History lamoTRIgine 100 mg PO HS 08/27/20 02/18/22 History metFORMIN HCL 500 mg PO BID 11/20/20 02/20/22 History Gabapentin [Neurontin] 400 mg PO TID 02/18/22 02/18/22 History Glimepiride [Amaryl] 0.5 mg PO QAM 02/18/22 02/20/22 History Synthroid (Unknown Dose) 1 tab PO QAM 02/18/22 02/18/22 History Trulicity (Unknown Dose) 1 dose SQ [place] 02/18/22 02/20/22 History Omeprazole [PriLOSEC] 40 mg PO BID #90 cap 02/20/22 Rx Sucralfate [Carafate] 1 gm PO BID #120 tablet 02/20/22 Rx Allergies Allergy/AdvReac Type Severity Reaction Status Date / Time gluten AdvReac Diarrhea Verified 02/18/22 12:36 lactose AdvReac Diarrhea Verified 02/18/22 12:36 morphine AdvReac Nausea & Verified 02/18/22 12:36 Vomiting
[2022-02-27 07:01] LABS: Glucose,Whole Blood 122 mg/dL (75-99)
[2022-02-27] MEDS: LACTATED RINGERS 1,000 ML IV SCH ×2 (07:13→07:37)
[2022-02-27 07:26] LABS: Basophils % (A) 0 %; Eosinophils # (A) 0.3 k/uL (0-0.7); Eosinophils % (A) 4 %; HCT 40.6 % (34.0-46.0); HGB 14.2 gm/dL (11.4-16.0); Lymphocytes % (A) 25 %; MCH 30.5 pg (25.0-35.0); MCHC 34.9 g/dL (31.0-37.0); MCV 87.3 fL (80.0-100.0); Mean Platelet Volume 7.4; Monocytes # (A) 0.5 k/uL (0-1.0); Monocytes % (A) 7 %; Neutrophils # (A) 5.1 k/uL (1.3-7.7); Neutrophils % (A) 62 %; Platelet Count 300 k/uL (150-450); RBC 4.65 m/uL (3.80-5.40); RDW 13.7 % (11.5-15.5); WBC 8.1 k/uL (3.8-10.6)
[2022-02-27] MEDS ORDERED: ROCURONIUM 10 MG/ML (5 ML VIAL) IV ONE (07:34)
[2022-02-27] MEDS ORDERED: INDOCYANINE GREEN 25 MG VIAL IV ONE (07:34)
[2022-02-27] MEDS ORDERED: LIDOCAINE 2% INJ 20 MG/ML (2 ML VIAL) ONE (07:34)
[2022-02-27] MEDS ORDERED: SUCCINYLCHOLINE CHLORIDE VIAL 200 MG/10 ML VIAL IV ONE (07:34)
[2022-02-27] MEDS ORDERED: NEOSTIGMINE 1 MG/ML 10 ML VIAL ONE (07:34)
[2022-02-27] MEDS ORDERED: PROPOFOL 10 MG/ML 20 ML VIAL IV ONE (07:34)
[2022-02-27] MEDS ORDERED: fentaNYL (PF) 50 MCG/ML 2 ML AMP ONE (07:34)
[2022-02-27] MEDS ORDERED: GLYCOPYRROLATE 0.2 MG/ML 2 ML VIAL ONE (07:34)
[2022-02-27] MEDS ORDERED: MIDAZOLAM 2 MG/2 ML VIAL ONE (07:34)
[2022-02-27] MEDS ORDERED: LIDOCAINE 0.5%-EPI 1:200,000 50 ML VIAL SQ ONE (07:58)
[2022-02-27] MEDS ORDERED: KETOROLAC 15 MG/ML 1 ML VIAL IVP PRN (08:46)
[2022-02-27] MEDS ORDERED: LACTATED RINGERS 1,000 ML IV ONE (08:46)
--- NOTE | 2022-02-27 08:51 | P.OP ---
Date of Procedure: 02/27/22 Description of Procedure: SURGEON: ZOE GAINES MD PREOPERATIVE DIAGNOSES: 1. Symptomatic gallstones 2. Right upper quadrant abdominal pain 3. Diabetes type 2, gfp-[id number]-[id number] with complications 4. Hypertensive heart disease 5. Morbid obesity due to excess calories, BMI 36.7 6. Gastroesophageal reflux disease 7. NSAID-induced gastropathy 8. Diabetic neuropathy 9. Hypothyroidism POSTOPERATIVE DIAGNOSES: 1. Symptomatic gallstone 2. Right upper quadrant abdominal pain 3. Chronic cholecystitis 4. Peritoneal adhesions, right upper quadrant 5. Diabetes type 2, [id number]-[id number] with complications 6. Hypertensive heart disease 7. Morbid obesity due to excess calories, BMI 36.7 8. Gastroesophageal reflux disease 9. NSAID-induced gastropathy 10. Diabetic neuropathy 11. Hypothyroidism 12. Hepatomegaly moderate to severe with fatty liver disease OPERATION: 1. Robotic-assisted da Aretha Xi laparoscopic lysis of adhesions over 70% of the case 2. Robotic-assisted da Aretha Xi laparoscopic cholecystectomy, multiport with FIREFLY ESTIMATED BLOOD LOSS: 10 mL. SPECIMENS REMOVED: Gallbladder. COMPLICATIONS: None. OPERATIVE FINDINGS: 1. Moderate scarring over entire gallbladder with peritoneal adhesions, pericholecystic with features of chronic cholecystitis 2. Hepatomegaly with fatty liver disease INDICATIONS: The patient is a 51-year-old female who presents with symptomatic gallstones. Robotic assisted laparoscopic approach was described. Benefits and risks of the procedure including but not limited to bleeding, infection, injury to the biliary tree was described. Informed consent was obtained. DESCRIPTION OF PROCEDURE: Patient was brought to the operating room, placed in supine position. After general induction, the abdomen had been prepped and draped in standard sterile fashion. The robotic da Aretha XI system was primed. After a timeout protocol was performed, the patient had been prepped and draped in standard sterile fashion. The patient was injected with indocyanine green. A 5 mm 0 degrees laparoscopic trocar entry was performed along the left upper quadrant. The abdomen insufflated to 15 mmHg pressure which was tolerated well. Diagnostic laparoscopy demonstrated no injury to bowel viscera or mesentery. The liver surface was unremarkable. Next, two 8 mm robotic ports were placed along the right upper abdomen. The camera 8-mm port was maintained along the epigastrium. Another 8 mm port was placed along the left upper abdominal wall after exchanging the 5 mm port. Please note that the ports were placed at least 10 to 15 cm away from the target anatomy of the gallbladder. The robot was docked along the left lateral abdomen. The patient was repositioned in reverse Trendelenburg position. Using a grasper for arm 3, a grasper for arm 4, including hook cautery for arm 1, the robotic system was docked and primed as described. Instruments were interchanged by the campaign assistant including hook cautery, Bovie cautery and clip appliers. I had sat at the console. The gallbladder was scarred with peritoneal adhesions. Lysis of adhesions was performed to free the gallbladder from the surrounding tissues. Over 70% of the time of the case was used for lysis of adhesions. Next attention was brought to the infundibulum and cystic structures. The infundibulum and cystic duct were dissected free from surrounding tissues. The cystic duct was isolated. FIREFLY was used to identify the cystic artery and cystic structures. A critical view of safety was obtained. Large PLASTIC clips were used throughout the entire case. Using a clip tong carrier, 2 clips were placed at the junction of the infundibulum and cystic duct. The cystic duct was divided between clips. Next, the cystic artery was similarly clipped and cauterized. Electro-Bovie cautery was used to remove the gallbladder from the hepatic fossa. Hemostasis was checked and found to be adequate. The robot was undocked. I re-scrubbed into the case. Using a 10 mm Endo Catch bag via the left upper quadrant incision, the specimen was removed from the abdominal cavity. All pneumoperitoneum instruments were evacuated from the abdominal cavity. The incisions were reapproximated using 4-0 Monocryl in an interrupted subcuticular fashion. Fascial defects were less than 8 mm in size. Please note along the trocar sites, local anesthetic was placed as a field block prior to insertion of all instruments. Liquid glue was applied to the skin. At the end of the procedure needle, sponge, and instrument count had been verified correct by the surgical garment assembler. The patient was transferred to postanesthesia care unit in stable condition. Intraoperative films were shared with the patient's family. Plan - Discharge Summary Discharge Rx Participant: No New Discharge Prescriptions: New Acetaminophen Tab [Tylenol Tab] 1,000 mg PO Q6HR PRN #30 tablet PRN Reason: Pain Simethicone [Gas-X] 125 mg PO AC-TID PRN #20 capsule PRN Reason: Pain Continue Metoprolol Tartrate [Lopressor] 50 mg PO BID Thyroid,Pork [[place] Thyroid] 180 mg PO QAM Baclofen 10 mg PO HS lamoTRIgine 100 mg PO HS metFORMIN HCL 500 mg PO BID Synthroid (Unknown Dose) 1 tab PO QAM Glimepiride [Amaryl] 0.5 mg PO QAM Gabapentin [Neurontin] 400 mg PO TID Trulicity (Unknown Dose) 1 dose SQ [place]OUGHERTY Omeprazole [PriLOSEC] 40 mg PO BID #90 cap Sucralfate [Carafate] 1 gm PO BID #120 tablet Discharge Medication List Metoprolol Tartrate [Lopressor] 50 mg PO BID 07/09/16 [History] Thyroid,Pork [[place] Thyroid] 180 mg PO QAM 07/09/16 [History] Baclofen 10 mg PO HS 08/27/20 [History] lamoTRIgine 100 mg PO HS 08/27/20 [History] metFORMIN HCL 500 mg PO BID 11/20/20 [History] Gabapentin [Neurontin] 400 mg PO TID 02/18/22 [History] Glimepiride [Amaryl] 0.5 mg PO QAM 02/18/22 [History] Synthroid (Unknown Dose) 1 tab PO QAM 02/18/22 [History] Trulicity (Unknown Dose) 1 dose SQ [place]OUGH[place] 02/18/22 [History] Omeprazole [PriLOSEC] 40 mg PO BID #90 cap 02/20/22 [Rx] Sucralfate [Carafate] 1 gm PO BID #120 tablet 02/20/22 [Rx] Acetaminophen Tab [Tylenol Tab] 1,000 mg PO Q6HR PRN #30 tablet 02/27/22 [Rx] Simethicone [Gas-X] 125 mg PO AC-TID PRN #20 capsule 02/27/22 [Rx] Follow up Appointment(s)/Referral(s): Zoe Gaines MD [STAFF PHYSICIAN] - 03/04/22 (Telehealth) Patient Instructions/Handouts: Laparoscopic Cholecystectomy (DC), Low Fat Diet (DC), *[facility] - Managing Your Pain After Surgery Without Opioids, Weight Management (DC), Non-Alcoholic Fatty Liver Disease (DC) Activity/Diet/Wound Care/Special Instructions: Recommend low-fat diet for the next 2 days. No lifting over 10 pounds in 2 weeks until March 13. February shower. No bath tub soaks for two weeks until March 13. Diet as tolerated. Use Tylenol, simethicone and ibuprofen or Aleve scheduled for the next 24-48 hours for best pain relief. Use ice along incisions for today to prevent swelling. Discharge Disposition: HOME SELF-CARE
[2022-02-27 08:52] VITALS: TEMP 96.9
[2022-02-27] MEDS: fentaNYL (PF) 50 MCG/ML 2 ML AMP IV PRN ×2 (09:31→09:37)
[2022-02-27 10:52] VITALS: BP 137/61; PULSE 84; RESP 18
[2022-02-27] MEDS ORDERED: SIMETHICONE 80 MG CHEWABLE PO ONE (11:12)
== END 2022-02-27 11:19 | disposition home or self-care (01) ==
LOC: OR 06:19
PROVIDERS: ATTEND Surgery Plastic and Reconstructive Surgery
DX: K80.10 Calculus of gallbladder with chronic cholecystitis without obstruction (principal); E03.9 Hypothyroidism, unspecified; E11.40 Type 2 diabetes mellitus with diabetic neuropathy, unspecified; E66.01 Morbid (severe) obesity due to excess calories; E78.00 Pure hypercholesterolemia, unspecified; I11.9 Hypertensive heart disease without heart failure; K21.9 Gastro-esophageal reflux disease without esophagitis; K76.0 Fatty (change of) liver, not elsewhere classified; Z68.36 Body mass index [BMI] 36.0-36.9, adult; Z79.84 Long term (current) use of oral hypoglycemic drugs; Z85.850 Personal history of malignant neoplasm of thyroid; Z88.5 Allergy status to narcotic agent; T39.395A Adverse effect of other nonsteroidal anti-inflammatory drugs [NSAID], initial encounter; K66.0 Peritoneal adhesions (postprocedural) (postinfection)
CPT/HCPCS: 47563; S2900; 85025; 88304

== ENCOUNTER → 2022-06-09 | Outpatient (CLI) | payer OTHER ==
[2022-06-09 11:12] LABS: Protein, Total 6.4 g/dL (6.2-8.2)
[2022-06-09 11:39] LABS: African American GFR (CKD) 100.7 (60.0-200.0); Albumin 4.3 g/dL (3.8-4.9); Albumin/Globulin Ratio 2.13 (1.60-3.17); Anion Gap 11.2 mmol/L (10.00-18.00); BUN/Creat Ratio 19.26 Ratio (12.00-20.00); Calcium 9.5 mg/dL (8.7-10.3); Carbon Dioxide 25.9 mmol/L (20.0-27.5); Non-African American GFR(CKD) 86.9 (60.0-200.0); Potassium 4.4 mmol/L (3.5-5.5); Total Bilirubin 0.3 mg/dL (0.30-1.20); Total Protein 6.3 g/dL (6.2-8.2)
[2022-06-10 14:27] LABS: Albumin 4.03 g/dL (3.80-4.90); Gamma Globulin 0.75 g/dL (0.70-1.50)
== END | disposition home or self-care (01) ==
LOC: LABWHC1 07:51
PROVIDERS: ATTEND Psychiatry & Neurology Pain Medicine
DX: E11.40 Type 2 diabetes mellitus with diabetic neuropathy, unspecified (principal); G62.9 Polyneuropathy, unspecified
CPT/HCPCS: 36415; 80053; 82607; 82784; 84165; 84443; 85652; 86038

== ENCOUNTER → 2022-06-09 | Outpatient (CLI) | payer OTHER ==
--- NOTE | 2022-06-09 09:14 | XR ---
EXAMINATION TYPE: XR knee complete RT DATE OF EXAM: 06/09/2022 CLINICAL HISTORY: pain TECHNIQUE: Three views of the right knee are obtained. COMPARISON: None. FINDINGS: There is no acute fracture/dislocation transversely oriented tibial plateau screw noted. M oderate narrowing medial tibiofemoral joint space and patellofemoral joint space. Suprapatellar joint effusion noted. IMPRESSION: There is no acute fracture or dislocation.ICD 10 NO FRACTURE, INITIAL EVALUATION
--- NOTE | 2022-06-09 09:25 | XR ---
EXAMINATION TYPE: XR cervical spine w flex/ext DATE OF EXAM: 06/09/2022 TECHNIQUE: Frontal, lateral, oblique, swimmers, and open mouth view of the cervical spine are obtaine d. Flexion and extension views are also obtained. HISTORY: M17.11, M47.22, M47.812 COMPARISON: None FINDINGS: The cervical spine is visualized in its entirety from C1 thru the top of T1 level, it is s atisfactory in alignment without evidence of acute fracture or dislocation. Alignment is stable at ne utral, flexion and extension. Moderate degenerative disc space narrowing extending from C3-4 through C6-7. Ventral and dorsal spondylosis identified. The pre-vertebral soft tissue appears within normal limits. The C1-C2 articulation is within normal limits on the open mouth view. The oblique images a re within normal limits. IMPRESSION: Degenerative changes as noted. Stable alignment at neutral, flexion and extension.
== END | disposition home or self-care (01) ==
LOC: RADXRMAIN 08:18
PROVIDERS: ATTEND Psychiatry & Neurology Pain Medicine
DX: M47.22 Other spondylosis with radiculopathy, cervical region (principal); M50.123 Cervical disc disorder at C6-C7 level with radiculopathy; M25.561 Pain in right knee
CPT/HCPCS: 72052

== ENCOUNTER → 2022-07-02 | Outpatient (CLI) | payer OTHER ==
--- NOTE | 2022-07-02 17:08 | MM ---
Reason for Exam: Screening (asymptomatic). Last mammogram was performed 12 year(s) and 0 month(s) ago. Patient History: Menarche at age 11. Patient has no children. Perimenopausal. Risk Values: Kierra 5 year model risk: 1.2%. NCI Lifetime model risk: 9.4%. Prior Study Comparison: 06/20/2009 Bilateral Screening Mammogram, [facility]. 06/24/2010 Bilateral Screening Mammogram, [facility]. Tissue Density: The breast tissue is heterogeneously dense. This may lower the sensitivity of mammography. Findings: Analyzed By CAD. No suspicious groups of microcalcifications, spiculated or lobular masses, architectural distortion or other secondary signs of malignancy are mammographically apparent. Overall Assessment: Benign, BI-RAD 2 Management: Screening Mammogram of both breasts in 1 year. A negative mammogram report should not preclude additional follow up of suspicious palpable abnormalities. Patient should continue monthly self breast exam. A clinical breast exam by your physician is recommended on an annual basis and results should be correlated with mammographic findings. Electronically signed and approved by: Thai Pena D.O. Radiologis
== END | disposition home or self-care (01) ==
LOC: RADMAMWWP 07:28
PROVIDERS: ATTEND Family Medicine
DX: Z12.31 Encounter for screening mammogram for malignant neoplasm of breast (principal)
CPT/HCPCS: 77067

== ENCOUNTER → 2022-07-14 | Outpatient (CLI) | payer OTHER ==
[2022-07-14 18:02] LABS: Basophils # (A) 0.04 X 10*3/uL (0.00-0.10); Basophils % (A) 0.6 %; Eosinophils # (A) 0.18 X 10*3/uL (0.04-0.35); Eosinophils % (A) 2.5 %; HCT 39.1 % (37.2-46.3); HGB 13.2 g/dL (12.0-15.0); Immature Grans, Automated 0.6 %; Lymphocytes # (A) 1.99 X 10*3/uL (0.90-5.00); Lymphocytes % (A) 27.6 %; MCH 29.7 pg (27.0-32.0); MCHC 33.8 g/dL (32.0-37.0); MCV 87.9 fL (80.0-97.0); Mean Platelet Volume 9.7 fL (9.5-12.2); Monocytes # (A) 0.51 X 10*3/uL (0.20-1.00); Monocytes % (A) 7.1 %; NRBC Per 100 WBC 0 /100 WBCS (0.0-0.0); Neutrophils # (A) 4.44 X 10*3/uL (1.80-7.70); Neutrophils % (A) 61.6 %; Platelet Count 255 X 10*3/uL (140-440); RBC 4.45 X 10*6/uL (4.10-5.20); RDW 12.7 % (11.5-14.5)
[2022-07-14 18:12] LABS: African American GFR (CKD) 101.5 (60.0-200.0); Albumin 4.3 g/dL (3.8-4.9); Albumin/Globulin Ratio 1.92 (1.60-3.17); BUN/Creat Ratio 19.12 Ratio (12.00-20.00); Blood Urea Nitrogen 14.8 mg/dL (9.0-27.0); Calcium 9.2 mg/dL (8.7-10.3); Carbon Dioxide 24.5 mmol/L (20.0-27.5); Globulin 2.3 g/dL (1.6-3.3); Non-African American GFR(CKD) 87.6 (60.0-200.0); Potassium 4.3 mmol/L (3.5-5.5); T4, Free (Free Thyroxine) 1.56 ng/dL (0.800-1.800); Total Bilirubin 0.4 mg/dL (0.30-1.20); Total Protein 6.6 g/dL (6.2-8.2)
== END | disposition home or self-care (01) ==
LOC: LABWHC1 11:28
PROVIDERS: ATTEND Family Medicine
DX: E11.9 Type 2 diabetes mellitus without complications (principal); E03.9 Hypothyroidism, unspecified; Z85.850 Personal history of malignant neoplasm of thyroid
CPT/HCPCS: 36415; 80053; 83036; 84432; 84439; 84443; 84481; 85025; 86800

== ENCOUNTER → 2024-05-05 | Outpatient (CLI) | payer OTHER ==
[2024-05-05 15:41] LABS: ALT 37 U/L (8-44); AST 28 U/L (13-35); Albumin 4.8 g/dL (3.8-4.9); Albumin/Globulin Ratio 2.09 Ratio (1.60-3.17); Alkaline Phosphatase 100 U/L (41-126); BUN/Creat Ratio 25.62 Ratio (12.00-20.00); Blood Urea Nitrogen 20.5 mg/dL (9.0-27.0); Calcium 9.8 mg/dL (8.7-10.3); Carbon Dioxide 24.2 mmol/L (21.6-31.8); Chloride 103 mmol/L (96-109); Chol/HDL Ratio 4.47 Ratio; Globulin 2.3 g/dL (1.6-3.3); Glucose 152 mg/dL (70-110); LDL Cholesterol,Calculated 95.4 mg/dL (0.0-131.0); Sodium 139 mmol/L (135-145); T4, Free (Free Thyroxine) 1.51 ng/dL (0.80-1.80); Total Bilirubin 0.4 mg/dL (0.3-1.2); Total Protein 7.1 g/dL (6.2-8.2)
[2024-05-05 16:49] LABS: Basophils # (A) 0.04 X 10*3/uL (0.00-0.10); Basophils % (A) 0.5 %; Eosinophils # (A) 0.24 X 10*3/uL (0.04-0.35); Eosinophils % (A) 2.9 %; HCT 43.5 % (37.2-46.3); HGB 14.7 g/dL (12.0-15.0); Lymphocytes # (A) 2.11 X 10*3/uL (0.90-5.00); Lymphocytes % (A) 25.9 %; MCHC 33.8 g/dL (32.0-37.0); MCV 85.8 FL (80.0-97.0); Mean Platelet Volume 9.3 FL (9.5-12.2); Monocytes # (A) 0.64 X 10*3/uL (0.20-1.00); Monocytes % (A) 7.9 %; NRBC Per 100 WBC 0 X 10*3/uL (0.00-0.01); Neutrophils # (A) 5.09 X 10*3/uL (1.80-7.70); Neutrophils % (A) 62.4 %; Platelet Count 282 X 10*3/uL (140-440); RBC 5.07 X 10*6/uL (4.10-5.20); RDW 13.1 % (11.5-14.5); WBC 8.15 X 10*3/uL (4.50-10.00)
== END | disposition home or self-care (01) ==
LOC: LABWHC1 10:17
PROVIDERS: ATTEND Internal Medicine Endocrinology, Diabetes & Metabolism
DX: E89.0 Postprocedural hypothyroidism (principal); E78.2 Mixed hyperlipidemia; E11.9 Type 2 diabetes mellitus without complications; I10 Essential (primary) hypertension; E53.8 Deficiency of other specified B group vitamins; E55.9 Vitamin D deficiency, unspecified; Z85.850 Personal history of malignant neoplasm of thyroid
CPT/HCPCS: 36415; 80053; 80061; 82306; 82607; 83036; 84432; 84439; 84443; 84481; 85025

== ENCOUNTER → 2024-09-26 | Day surgery (SDC) | payer OTHER ==
[2024-09-23 09:15] VITALS: BMI 37.5
[~2024-09-26] MED LIST changes: +BENZOCAINE SPRAY 1 CAN TOPICAL PRN; -DEXAMETHASONE SOD PHOSPHATE 4 MG/ML 1 ML VIAL IV ONE; -HEPARIN SODIUM,PORCINE/PF 5,000 UNIT/0.5 ML SYRINGE SQ PRN; +MIDAZOLAM 2 MG/2 ML VIAL IV PRN; -ONDANSETRON 4 MG/2 ML VIAL IVP ONE; +PROPOFOL 10 MG/ML 20 ML VIAL IV ONE; +fentaNYL (PF) 50 MCG/ML 5 ML AMP IVP PRN
[2024-09-26] MEDS: SODIUM CHLORIDE 0.9% 500 ML 500 ML IV SCH (06:52)
[2024-09-26] MEDS: IV FLUID CONTINUATION 1,000 ML IV ONE (06:52)
[2024-09-26 06:56] LABS: Glucose,Whole Blood 114 mg/dL (70-110)
[2024-09-26 07:00] VITALS: TEMP 98
[2024-09-26] MEDS: BENZOCAINE SPRAY 1 EACH MM ONE ×3 (07:31→09:32)
[2024-09-26] MEDS: MIDAZOLAM 2 MG/2 ML VIAL IVP ONE (07:45)
[2024-09-26] MEDS: fentaNYL (PF) 50 MCG/ML 2 ML AMP IVP ONE (07:45)
[2024-09-26 10:17] VITALS: RESP 16
[2024-09-26 12:45] VITALS: BP 153/65; PULSE 83
--- NOTE | 2024-09-26 21:42 | ECHOT ---
TRANSESOPHAGEAL ECHOCARDIOGRAM INDICATION: Severe aortic regurgitation. PROCEDURE NOTE: After obtaining informed consent, transesophageal echocardiogram was performed in left lateral position using an Omniplane probe. Local and IV sedation were obtained by the pipe fitter gas pipe. I initially attempted JANENE using just Xylocaine spray and Versed, I could not, hence Anesthesia came to help me with conscious sedation. The patient tolerated the procedure well without any obvious immediate complications. FINDINGS: 1. Aortic valve is a 3-leaflet valve. There is moderate aortic regurgitation noted. Aortic root measures within normal limits. Mitral valve is anatomically normal. There is mild mitral regurgitation noted. There is mild tricuspid regurgitation noted. Left atrium appears enlarged. Right atrium and right ventricle seen within normal limits. 2. Left ventricle has normal size and systolic function. 3. Interatrial septum, there is no evidence of [id number] shunt by color-flow Doppler or [id number]-bp-[id number] shunt by agitated saline contrast study. CONCLUSIONS: 1. Moderate aortic regurgitation. 2. Normal LV systolic function. 3. Mild left atrial enlargement. MMODL / IJN: [id number] /
== END ==
LOC: CATHCVL 06:06
PROVIDERS: ATTEND Internal Medicine Cardiovascular Disease
DX: I35.1 Nonrheumatic aortic (valve) insufficiency (principal); I10 Essential (primary) hypertension; E78.5 Hyperlipidemia, unspecified; Z88.5 Allergy status to narcotic agent; Z79.890 Hormone replacement therapy; Z79.899 Other long term (current) drug therapy
CPT/HCPCS: 93312; 93320; 93325; J2250; J3010; J2704

== ENCOUNTER → 2025-03-17 | Outpatient (CLI) | payer OTHER ==
--- NOTE | 2025-03-22 19:32 | MR ---
EXAMINATION TYPE: MR wrist LT wo con DATE OF EXAM: 03/17/2025 10:07 PM COMPARISON: None. CLINICAL INDICATION: Female, 54 years old with history of W19.XXXA UNSPECIFIED FALL, M25.532 M67.834; [facility], Left wrist pain, TECHNIQUE: Multiplanar multisequence imaging of the wrist. No Gadolinium given. IV Contrast: mL (None, if empty) FINDINGS: Joint spaces and alignment: Normal Joint/bursal fluid: Normal Articular cartilage: Normal Flexor retinaculum: Intact Median nerve: Intact Flexor tendons: Intact Extensor tendons: There is thickened appearance of the abductor pollicis longus and extensor pollicis brevis tendons with high PD signal surrounding the tendon sheath. Abductors/adductor tendons: Intact Intrinsic carpal ligaments: Intact Extrinsic carpal ligaments: Intact Triangular fibrocartilage complex: Intact Neurovascular structures: Normal Marrow: Normal healing styloid process may be broken off the ulna. This appears well corticate d. Soft tissues: Subcutaneous edema around the distal anterior ulna. IMPRESSION: 1. Thickened appearance of the first dorsal wrist compartment tendons with fluid surrounding them andrade ggesting tenosynovitis of the abductor pollicis longus and extensor pollicis brevis. 2. No definitive evidence to suggest fracture 3. Soft tissue edema anterior to the distal ulna without evidence of fracture. Possibly sequela of r eported history of fall. 4. Remote ulnar styloid process fracture. [facility], , 03/22/2025 7:30 PM
== END | disposition home or self-care (01) ==
LOC: RADMRIMAIN 21:45
PROVIDERS: ATTEND Neurological Surgery
DX: M67.834 Other specified disorders of tendon, left wrist (principal); R60.0 Localized edema; W19.XXXA Unspecified fall, initial encounter